=== PATIENT | female | born 1960 | race Caucasian/White ===

== ENCOUNTER → 2021-03-06 09:06 | Outpatient (CLI) | payer OTHER, SELFPAY ==
[2021-03-06 20:22] LABS: COVID19 - ORCAS (NP or Nasal) Negative (Negative)
== END ==
PROVIDERS: Referring Provider Family Medicine; Visit Provider Family Medicine
DX: Z20.822 Contact with and (suspected) exposure to COVID-19 (principal)
CPT/HCPCS: U0003